=== PATIENT | female | born 1990 | race Caucasian/White ===

== ENCOUNTER 2017-08-20 07:27 | Emergency (ER) | payer MEDICAID, OTHER ==
[~2017-08-20] VITALS: Ht 157.5 cm; Wt 72.5 kg
[~2017-08-20 07:27] MED LIST: ACET1TAB40 PO; ACYC400T2 PO; BACTDS PO; CIPR500T4 PO; FLUC150T17 PO; IBUP-40 PO; PHEN-538 PO
[2017-08-20 07:28] VITALS: Ht 157.5 cm; Wt 72.5 kg
[2017-08-20] MEDS ORDERED: ONDANSETRON 4 MG INJ IV STA (08:03)
[2017-08-20] MEDS ORDERED: morphine 4 MG/ML VIAL IV STA (08:03)
[2017-08-20 08:52] LABS: BASOPHIL # 0.1 10^3/ul (0.0-0.1); BASOPHILS % 0.3 % (0.0-2.0); EOSINOPHILS % 0.1 % (0.0-7.0); HEMATOCRIT 38.6 % (37.0-47.0); HEMOGLOBIN 13.7 g/dl (12.0-16.0); LYMPHOCYTES # 1.7 10^3/ul (0.8-2.9); LYMPHOCYTES % 10.4 % (15.0-51.0); MEAN CORPUSCULAR HEMOGLOBIN 32.2 pg (29.0-33.0); MEAN CORPUSCULAR HGB CONC 35.5 g/dl (32.0-37.0); MEAN CORPUSCULAR VOLUME 90.6 fl (82.0-101.0); MEAN PLATELET VOLUME 10.1 fl (7.4-10.4); MONOCYTES % 6.2 % (0.0-11.0); NEUTROPHIL # 13.4 10^3/ul (1.6-7.5); NEUTROPHILS % 82.6 % (39.0-77.0); PLATELET COUNT 247 10^3/UL (140-415); RED BLOOD COUNT 4.26 10^6/ul (4.20-5.40); RED CELL DISTRIBUTION WIDTH 11.9 % (11.5-14.5); WHITE BLOOD COUNT 16.2 10^3/ul (4.8-10.8)
[2017-08-20 09:02] LABS: ADD UMIC YES; UR ASCORBIC ACID NEGATIVE (NEGATIVE); UR BILIRUBIN (Dip) NEGATIVE (NEGATIVE); UR BLOOD (Dip) 3+ mg/dL (NEGATIVE); UR CLARITY CLEAR (CLEAR); UR COLOR YELLOW (YELLOW); UR GLUCOSE (Dip) NEGATIVE (NEGATIVE); UR KETONES (Dip) TRACE mg/dL (NEGATIVE); UR LEUKOCYTE ESTERASE (Dip) NEGATIVE Leu/ul (NEGATIVE); UR MUCUS FEW /HPF (NONE SEEN); UR NITRITE (Dip) NEGATIVE (NEGATIVE); UR RBC 32 /HPF (0-5); UR SPECIFIC GRAVITY (Dip) 1.018 (1.003-1.030); UR SQUAMOUS EPITHELIAL CELL FEW /HPF (FEW); UR TOTAL PROTEIN (Dip) NEGATIVE (NEGATIVE); UR UROBILINOGEN (Dip) NEGATIVE (NEGATIVE)
[2017-08-20 09:12] LABS: ALBUMIN 4.6 g/dl (3.3-4.9); ALBUMIN/GLOBULIN RATIO 1.27; BILIRUBIN,INDIRECT 0.4 mg/dl (0-1.1); BILIRUBIN,TOTAL 0.4 mg/dl (0.2-1.3); CALCIUM 9.4 mg/dl (8.4-10.2); CREATININE 0.76 mg/dl (0.44-1.00); POTASSIUM 4.1 mmol/L (3.5-5.1); TOTAL PROTEIN 8.2 g/dl (6.1-8.1)
--- NOTE | 2017-08-20 09:53 | RADRPT ---
PROCEDURE: CT ABDOMEN AND PELVIS WITHOUT CONTRAST. CLINICAL INDICATION: Abdominal pain and right lower quadrant tenderness TECHNIQUE: CT scan of the abdomen and pelvis without contrast was performed on a multidetector hig h-resolution CT scanner. The patient was scanned without intravenous contrast. Coronal and sagittal reformatted images were obtained from the axial source images. Images were reviewed on a high-resol [email or web address] PACS workstation. The total exam CTDI equals 9.3 mGy and the total exam DLP equals 537.3 mGy-c m. One or more of the following dose reduction techniques were used: Automated exposure control. Adjustment of the mA and/or kV according to patient size. Use of iterative reconstruction technique. COMPARISON: None FINDINGS: CT abdomen: The lung bases are clear. The heart size is within limits. There is no significant pericardial effus ion. Hepatic morphology is within normal limits. No gross contour deforming masses. The gallbladder is wi thin normal limits. No evidence of intrahepatic or extrahepatic biliary dilatation. The spleen and pancreas are within normal limits. Both adrenal glands are within normal limits. Both kidneys are in normal anatomic position. No evidence of obstruction or hydronephrosis. No gross renal/ureteric calculi. The visualized GI tract demonstrate normal caliber loops of small and large bowel. No evidence of lila wel obstruction. The appendix is within normal limits. The unenhanced aorta is unremarkable. No significant retroperitoneal lymphadenopathy. CT pelvis: The bladder is within limits. The rectosigmoid colon is within normal limits. No significant free fl uid. No significant pelvic lymphadenopathy The uterus appears to be within normal limits. The visualized osseous structures appear to be within normal limits. IMPRESSION: 1. No evidence of acute intra-abdominal/pelvic inflammatory process. No evidence of bowel obstructio n. The appendix is within normal limits. 2. No evidence of free fluid or free air. No gross focal fluid collections. 3. No gross renal/ureteric calculi. No obstruction hydronephrosis. 4. Otherwise, unremarkable unenhanced CT scan of the abdomen/pelvis. RPTAT: [facility] Physician Jose Roberto Date Time Electronically viewed and signed by Physician Jose Roberto on 08/20/2017 09:53 EMERALD/
[2017-08-20] MEDS ORDERED: ACETAMINOPHEN 325 MG TAB PO ONE (10:00)
[2017-08-20] MEDS ORDERED: OSLT75C PO (10:01)
[2017-08-20 10:22] VITALS: BP 116/71; PULSE 96; RESP 18; TEMP 98.3
--- NOTE | 2017-08-20 10:35 | ERD ---
ER Documentation Chief Complaint Chief Complaint vaca back pain and sob HPI Otherwise healthy 26-year-old female presents with the chief complaints of back pain, body aches, nausea and abdominal pain. No vomiting. Denies neck stiffness, cough, taken medications to relieve the symptoms, similar symptoms in past. No aggravating factors. No alleviating factors. Patient has no other complaints and describes no other associated manifestations. Nursing notes are not consistent with history given. Further care was taken to obtain the correct history. ROS All systems reviewed and are negative except as per history of present illness. Medications Home Meds Active Scripts Oseltamivir Phosphate* (Tamiflu*) 75 Mg Capsule, 75 MG PO BID for 5 Days, CAP Prov:NAVI MARTINEZ PA-C 08/20/17 Acyclovir* (Acyclovir*) 400 Mg Tablet, 400 MG PO QID for 7 Days, TAB Prov:RANDEE DE LOS SANTOS PA-C 11/02/15 Sulfamethoxazole-Trimethoprim* (Bactrim* DS) 800-160 Mg Tab, 1 TAB PO BID for 7 Days, TAB Prov:RANDEE DE LOS SANTOS PA-C 11/02/15 Phenazopyridine Hcl* (Pyridium*) 200 Mg Tab, 200 MG PO TID Y for DYSURIA, #6 TAB Prov:BETH BUENROSTRO MD 06/12/15 Fluconazole* (Diflucan*) 150 Mg Tablet, 150 MG PO Q WEEK, #2 TAB TAKE ONE NOW. REPEAT AFTER 1 WEEK Prov:BETH BUENROSTRO MD 06/12/15 Acetaminophen-Codeine* (Acetaminophen-Cod #3*) 300-30 Mg Tab, 1 TAB PO Q4H Y for PAIN, #10 TAB Prov:BETH BUENROSTRO MD 06/12/15 Ciprofloxacin Hcl* (Ciprofloxacin Hcl*) 500 Mg Tablet, 500 MG PO BID for 5 Days , TAB Prov:BETH BUENROSTRO MD 06/12/15 Reported Medications Ibuprofen (Advil) 200 Mg Tablet, PO 02/15/13 Allergies Allergies: Coded Allergies: No Known Allergy (Verified , 08/20/17) PMhx/Soc History of Surgery: Yes ( X2 2009 & 2010) Anesthesia Reaction: No Hx Neurological Disorder: No Hx Respiratory Disorders: No Hx Cardiac Disorders: No Hx Psychiatric Problems: No Hx Miscellaneous Medical Probl: No Hx Alcohol Use: No Hx Substance Use: No Hx Tobacco Use: No Physical Exam Vitals Vital Signs Date Time Temp Pulse Resp B/P Pulse Ox O2 Delivery O2 Flow Rate FiO2 08/20/17 07:28 101.3 107 18 127/78 99 Physical Exam Const: 26-year-old female mild distress Head: Atraumatic Eyes: Normal Conjunctiva ENT: Normal External Ears, Nose and Mouth. Neck: No lymphadenopathy or other masses palpated.Full range of motion..~ No meningismus. Resp: Clear to auscultation bilaterally Cardio: Regular rate and rhythm, no murmurs. Cap refill less than 2 seconds. Radial pulses 2+ bilaterally. Abd: Mild mid abdomen to right lower quadrant tenderness. Soft, non distended. Normal bowel sounds Skin: No petechiae or rashes Back: No midline or flank tenderness Ext: No cyanosis, or edema Neur: Awake and alert Psych: Normal Mood and Affect Result Diagram: 08/20/17 0831 08/20/17 0831 Results 24 hrs Laboratory Tests Test 08/20/17 08:31 08/20/17 08:33 White Blood Count 16.210^3/ul Red Blood Count 4.2610^6/ul Hemoglobin 13.7g/dl Hematocrit 38.6% Mean Corpuscular Volume 90.6fl Mean Corpuscular Hemoglobin 32.2pg Mean Corpuscular Hemoglobin Concent 35.5g/dl Red Cell Distribution Width 11.9% Platelet Count 71918^3/UL Mean Platelet Volume 10.1fl Neutrophils % 82.6% Lymphocytes % 10.4% Monocytes % 6.2% Eosinophils % 0.1% Basophils % 0.3% Nucleated Red Blood Cells % 0.0/100WBC Neutrophils # 13.410^3/ul Lymphocytes # 1.710^3/ul Monocytes # 1.010^3/ul Eosinophils # 0.010^3/ul Basophils # 0.110^3/ul Nucleated Red Blood Cells # 0.010^3/ul Sodium Level 138mmol/L Potassium Level 4.1mmol/L Chloride Level 106mmol/L Carbon Dioxide Level 21mmol/L Anion Gap 15 Blood Urea Nitrogen 7mg/dl Creatinine 0.76mg/dl Glucose Level 99mg/dl Calcium Level 9.4mg/dl Total Bilirubin 0.4mg/dl Direct Bilirubin 0.00mg/dl Indirect Bilirubin 0.4mg/dl Aspartate Amino Transf (AST/SGOT) 17IU/L Alanine Aminotransferase (ALT/SGPT) 26IU/L Alkaline Phosphatase 94IU/L Total Protein 8.2g/dl Albumin 4.6g/dl Globulin 3.60g/dl Albumin/Globulin Ratio 1.27 Lipase 44U/L Urine Color YELLOW Urine Clarity CLEAR Urine pH 6.0 Urine Specific [place] 1.018 Urine Ketones TRACEmg/dL Urine Nitrite NEGATIVEmg/dL Urine Bilirubin NEGATIVEmg/dL Urine Urobilinogen NEGATIVEmg/dL Urine Leukocyte Esterase NEGATIVELeu/ul Urine Microscopic RBC 32/HPF Urine Microscopic WBC 1/HPF Urine Squamous Epithelial Cells FEW/HPF Urine Mucus FEW/HPF Urine Hemoglobin 3+mg/dL Urine Glucose NEGATIVEmg/dL Urine Total Protein NEGATIVEmg/dl Current Medications Medications (Trade) Dose Ordered Sig/Micky Route PRN Reason Start Time Stop Time Status Last Admin Dose Admin Morphine Sulfate (morphine) 4 mg ONCE STAT IV 08/20/17 08:03 08/20/17 08:09 DC 08/20/17 08:39 Ondansetron HCl (Zofran Inj) 4 mg ONCE STAT IV 08/20/17 08:03 08/20/17 08:09 DC 08/20/17 08:39 Acetaminophen (Tylenol Tab) 650 mg ONCE ONCE PO 08/20/17 10:00 08/20/17 10:02 DC 08/20/17 10:06 Procedures/MDM 26-year-old female presenting with a chief complaint of headache, body aches, abdominal pain and nausea without vomiting worsening over the past 1-2 days. Has not taken any medication to relieve symptoms. Labs were obtained and revealed leukocytosis with left shift. Urinalysis showed 1 white blood cell, few epithelial cells, increased ketones. Negative nitrites and leukocyte esterase.CT was obtained read by the radiologist given the following impression : Unremarkable. This time I will suspicion for meningitis, pyelonephritis, pancreatitis, cholangitis, cholecystitis, mesenteric ischemia, related pathologies, appendicitis, ovarian torsion, or other acute abdomen. Most likely diagnosis is flulike symptoms versus abdominal pain of unknown etiology. Patient was given Tamiflu. Discharge instructions return precautions. I have spoke with the patient regarding their condition and future management. They have verbally responded that they understand their status and treatment plan. The patients vitals are stable, and their current condition is appropriate for discharge. The patient will be given discharge instructions with return precautions. Discharge medications: Tamiflu Departure Diagnosis: Primary Impression: Influenza-like symptoms Condition: Stable Patient Instructions: Influenza (Adult) Additional Instructions: Follow up with your PCP within the next 1-3 days for a more thorough evaluation and a possible referral to a specialist. Return the the emergency department immediately if symptoms worsen or change. If you have any questions regarding medications, ask your pharmacist or us before you leave. If any adverse reactions occur while taking your medications, discontinue the treatment and return to the emergency department immediately. Take your medications as directed, and complete the entire course of treatment. NAVI MARTINEZ PA-C Aug 20, 2017 10:35
== END 2017-08-20 10:30 | disposition home or self-care (01) ==
LOC: FTE 07:27
DX: R51 Headache (principal); R10.31 Right lower quadrant pain; M54.9 Dorsalgia, unspecified; R06.02 Shortness of breath; R11.0 Nausea
CPT/HCPCS: 36415; 74176; 80053; 81001; 83690; 85025; 96374; 96375; J2270; J2405; Z7502; Z7610